=== PATIENT | male | born 1965 ===

== ENCOUNTER 2016-10-17 05:32 | Day surgery (SDC) | payer BC ==
--- NOTE | ~2016-10-17 | EGD ---
EGD REPORT [facility] [address] [id number] NAME: JOHN CALERO : [birth year] STATUS : REG [facility] PAT#: [id number] AGE: 51 ADM/REG DATE : 10/17/16 MR#: [id number] REPORT SERV DATE: 10/17/16 DICTATED BY: KAILA ROBLES DATE: 10/17/16 REPORT STATUS : Draft [facility]: [facility] DATE: 10/17/16 Endoscopy Center Patient Name: John Calero Date of : 1965 Attending MD: KAILA ROBLES MD Procedure Date No Time: 10/17/2016 Procedure: Colonoscopy Indications: Screening for colorectal malignant neoplasm Referring MD: VETO WINSTON MD Medicines: Monitored Anesthesia Care Complications: No immediate complications. Procedure: Pre-Anesthesia Assessment: - ASA Grade Assessment: III - A patient with severe systemic disease. After I obtained informed consent, the scope was passed under direct vision. Throughout the procedure, the patient's blood pressure, pulse, and oxygen saturations were monitored continuously. The CF [id number] was introduced through the anus and advanced to the terminal ileum, with identification of the appendiceal orifice and IC valve. The colonoscopy was performed without difficulty. The patient tolerated the procedure well. The quality of the bowel preparation was good. Findings: The digital rectal exam was normal. Pertinent negatives include no palpable rectal lesions. The terminal ileum appeared normal. Multiple diverticula were found in the sigmoid colon and in the descending colon. Hemorrhoids were found during retroflexion and were mild. Impression: - The examined portion of the ileum was normal. - Diverticulosis in the sigmoid colon and in the descending colon. - Hemorrhoids. Recommendation: - Patient has a contact number available for emergencies. The signs and symptoms of potential delayed complications were discussed with the patient. Return to normal activities tomorrow. Written discharge instructions were provided to the patient. - Regular diet. - Continue present medications. - Repeat colonoscopy in 10 years for screening purposes. EGD REPORT [place] [id number] [facility] [place]. [address] NAME: JOHN CALERO : [birth year] STATUS : REG [facility]#: [id number] AGE: 51 ADM/REG DATE : 10/17/16 MR#: [id number] REPORT SERV DATE: 10/17/16 DICTATED BY: KAILA ROBLES DATE: 10/17/16 REPORT STATUS : Draft TRANSCRIBED BY: [employer] DATE: 10/17/16 - Return to GI clinic PRN. Procedure Code(s): --- Professional --- 46270, Colonoscopy, flexible, proximal to splenic flexure; diagnostic, with or without collection of specimen(s) by brushing or washing, with or without colon decompression (separate procedure) Diagnosis Code(s): --- Professional --- K64.9, Unspecified hemorrhoids K57.30, Diverticulosis of large intestine without perforation or abscess without bleeding Z12.11, Encounter for screening for malignant neoplasm of colon CPT copyright 2013 [employer]. All rights reserved. The codes documented in this report are preliminary and upon dentist/owner review may be revised to meet current compliance requirements. KAILA ROBLES MD 10/17/2016 7:28 AM This report has been signed electronically. Number of Addenda: 0 Note Initiated On: 10/17/2016 7:00 AM Scope Withdrawal Time 0 hours 6 minutes 37 seconds [address] [place] [address]
[~2016-10-17 05:32] MED LIST: ASAB PO; COREG3 PO; COZ50 PO; CRESTOR20 MG PO; PRIN2.5 PO
== END 2016-10-17 23:59 | disposition home or self-care (01) ==
LOC: DMU 05:32
PROVIDERS: Internal Medicine Gastroenterology
PROC: 0DJD8ZZ Inspection of Lower Intestinal Tract, Via Natural or Artificial Opening Endoscopic (ICD-10-PCS; principal; 2016-10-17 07:00)
DX: Z12.11 Encounter for screening for malignant neoplasm of colon (principal); K64.9 Unspecified hemorrhoids; K57.30 Diverticulosis of large intestine without perforation or abscess without bleeding; I25.10 Atherosclerotic heart disease of native coronary artery without angina pectoris; Z95.5 Presence of coronary angioplasty implant and graft; I10 Essential (primary) hypertension; E78.00 Pure hypercholesterolemia, unspecified; Z79.899 Other long term (current) drug therapy; Z79.82 Long term (current) use of aspirin